=== PATIENT | female | born 1990 | race Caucasian/White ===

== ENCOUNTER 2019-06-08 07:37 | Day surgery (SDC) | payer MEDICAID ==
[~2019-06-08] VITALS: Ht 162.6 cm; Wt 77.1 kg
[2019-06-08] MEDS ORDERED: LACTATED RINGERS 1,000 ML IV SCH (08:00)
[2019-06-08 08:21] LABS: CLARITY URINE CLOUDY (CLEAR); COLOR URINE YELLOW (YELLOW); KETONES URINE NEGATIVE (NEGATIVE); LEUKOCYTE ESTERASE URINE NEGATIVE (NEGATIVE); NITRITE URINE NEGATIVE (NEGATIVE); OCCULT BLOOD URINE TRACE (NEGATIVE); PROTEIN URINE NEGATIVE (NEGATIVE); UROBILINOGEN URINE 0.2 E.U./dL (0.2-1.0)
[2019-06-08 08:22] LABS: UCG SCREEN NEGATIVE
[2019-06-08] MEDS ORDERED: METHYLENE BLUE 50 MG/10 ML AMP IV ONE (08:35)
[2019-06-08] MEDS ORDERED: BUPIVACAINE HCL/PF 0.5% (5MG/ML) 10ML ONE (08:36)
[2019-06-08] MEDS ORDERED: SKIN ADHESIVE 0.7 GM EA TOP ONE (08:36)
[2019-06-08] MEDS ORDERED: NORMAL SALINE 0.9% 10 ML SYR ONE (08:36)
[2019-06-08] MEDS ORDERED: SODIUM CHLORIDE 0.9% 1,000 ML IV ONE (10:04)
[2019-06-08] MEDS ORDERED: MEPERIDINE HCL/PF 25MG/ML CPJ IV PRN ×2 (10:15)
[2019-06-08] MEDS ORDERED: HYDROMORPHONE HCL/PF 2MG/ML CPJ IV PRN (10:15)
[2019-06-08] MEDS ORDERED: ONDANSETRON HCL 4MG/2ML INJ IV PRN (10:15)
== END 2019-06-08 12:00 | disposition home or self-care (01) ==
LOC: OR 07:37
PROVIDERS: ATTEND Surgery
DX: N60.31 Fibrosclerosis of right breast (principal); E66.3 Overweight; Z98.891 History of uterine scar from previous surgery; Z79.899 Other long term (current) drug therapy; Z94.1 Heart transplant status; Z68.29 Body mass index [BMI] 29.0-29.9, adult
CPT/HCPCS: 19120; 81003; 81025; 88307; J3490; Q9968